=== PATIENT | male | born 1985 | race Caucasian/White ===

== ENCOUNTER 2021-07-25 15:49 | Emergency (ER) | payer BC, OTHER ==
[~2021-07-25 15:49] MED LIST: BACTRIM DS TAB1 EACH PO; KEFLEX500 MG PO; NORCO 5-325 TA1 EACH PO
[2021-07-25 16:37] LABS: HEMOGLOBIN 15.6 gm/dl (14.0-17.5); RED BLOOD COUNT 5.26 M/UL (4.20-5.50); WHITE BLOOD COUNT 4.9 K/UL (4.5-11.0)
[2021-07-25 16:59] LABS: BUN/CREATININE RATIO 7 (0-10)
[2021-07-25] MEDS ORDERED: IBUPROFEN800 MG PO (21:40)
== END 2021-07-25 22:05 | disposition home or self-care (01) ==
LOC: ER1 15:49
PROVIDERS: Physician Assistant
DX: U07.1 COVID-19 (principal); J40 Bronchitis, not specified as acute or chronic; E87.6 Hypokalemia; I10 Essential (primary) hypertension
CPT/HCPCS: 71045; 80053; 82550; 82553; 83735; 83874; 84439; 84443; 84484; 85025; 93005; 99285; M0247; U0002

== ENCOUNTER 2021-08-13 12:50 | Observation (INO) | payer BC ==
[~2021-08-13] VITALS: Ht 182.9 cm; Wt 138.3 kg
[~2021-08-13 12:50] MED LIST changes: +IBUPROFEN800 MG PO
[2021-08-13 13:17] LABS: HEMOGLOBIN 16.2 gm/dl (14.0-17.5); RED BLOOD COUNT 5.67 M/UL (4.20-5.50); WHITE BLOOD COUNT 6.8 K/UL (4.5-11.0)
[2021-08-13 13:38] LABS: BUN/CREATININE RATIO 11 (0-10)
[2021-08-13] MEDS ORDERED: ATENOLOL50 MG PO (15:06)
[2021-08-13] MEDS ORDERED: COQ-10100 MG PO (15:36)
[2021-08-13] MEDS ORDERED: POTASSIUM99 M1 PO (15:40)
[2021-08-14 07:47] LABS: HEMOGLOBIN 14.5 gm/dl (14.0-17.5); WHITE BLOOD COUNT 5.7 K/UL (4.5-11.0)
[2021-08-14 08:01] LABS: RED BLOOD COUNT 5.07 M/UL (4.20-5.50)
[2021-08-14 08:03] LABS: BUN/CREATININE RATIO 18 (0-10)
[2021-08-14] MEDS ORDERED: ASPIRIN EC81 MG PO (12:20)
[2021-08-14] MEDS ORDERED: LOPRESSOR 50 MG50 MG PO (12:20)
== END 2021-08-14 13:27 | disposition home or self-care (01) ==
LOC: ER1 12:50 → M/S 14:57 → CDU 14:57 → M/S 16:37
PROVIDERS: Emergency Medicine; ADMIT Internal Medicine
DX: I48.0 Paroxysmal atrial fibrillation (principal); U07.1 COVID-19; G47.33 Obstructive sleep apnea (adult) (pediatric); E66.9 Obesity, unspecified; Z99.89 Dependence on other enabling machines and devices; Z82.49 Family history of ischemic heart disease and other diseases of the circulatory system; Z68.41 Body mass index [BMI] 40.0-44.9, adult; Z79.82 Long term (current) use of aspirin; Z79.899 Other long term (current) drug therapy
CPT/HCPCS: ECHO; 36415; 71045; 80048; 80053; 80061; 82550; 82553; 83036; 83735; 83880; 84100; 84439; 84443; 84484; 85025; 85610; 85730; 93005; 93306; 94660; 94760; 96374; 99285; G0378; J7030; U0002